=== PATIENT | female | born 1985 | race Caucasian/White ===

== ENCOUNTER → 2017-08-16 10:29 | Outpatient (CLI) | payer BC, SELFPAY ==
[2017-08-16 12:43] LABS: Hematocrit 28.5 % (37-47); Mean Corp Hgb Conc 31.6 g/gl (32-36); Mean Corpuscular Hgb 27.6 pg (27.0-32.0); Mean Corpuscular Volume 87.4 fL (81-99); Mean Platelet Vol. 10.4 fl (6.2-12.0); Platelet Count 239 K/mm3 (150-450); RBC Distribution Width CV 13.2 % (11.6-14.6); RBC Distribution Width SD 42.4 fl (35.1-43.9); Red Blood Count 3.26 M/mm3 (4.2-5.4); Scan Indicated on CBC? Y/N NO
[2017-08-16 12:46] LABS: Glucose Challenge Gest 1H 50g 66 mg/dL (70-140)
== END ==
PROVIDERS: Visit Provider Obstetrics & Gynecology
DX: Z34.83 Encounter for supervision of other normal pregnancy, third trimester (principal)
CPT/HCPCS: 36415; 82950; 85027; 86850

== ENCOUNTER → 2017-10-11 14:13 | Outpatient (CLI) | payer BC, SELFPAY ==
[2017-10-11 16:53] LABS: Group B Strep DNA By PCR Negative (Negative); Internal Control PASS; Probe Check PASS; Specimen Processing Control PASS
== END ==
PROVIDERS: Visit Provider Obstetrics & Gynecology
DX: Z36.85 Encounter for antenatal screening for Streptococcus B (principal)
CPT/HCPCS: 87081; 87653

== ENCOUNTER 2017-10-26 14:10 | Outpatient (CLI) | payer BC, SELFPAY ==
--- NOTE | 2017-10-27 13:35 | OB.TRI.NOTE ---
History of Present Illness Date of Service: 10/26/17 Reason For Visit: ROL Date of Service: 10/26/17 Final CRAIG Source: US <20 weeks Gestational age: 38 + wk EGA Home Medications Medication Instructions Recorded Vits [Prenatabs FA ] 1 tablet PO DAILY 12/13/15 Acetaminophen [Tylenol Extra 500 mg PO Q6H 10/26/17 Strength] Ferrous Gluconate 325 mg PO BIDCM 10/26/17 Allergies No Known Allergies Allergy (Verified 10/26/17 20:22) - Pertinent Past Medical History Pertinent Past Medical History: 32 yo female at 38 + wk presented for labor check with h/o UCs up to q 7 mins all day yesterday. Evaluated no further change of cervix. Physical Exam Presentation: Cephalic NST - FHR Rate Baby A Variability:: Moderate Accelerations:: 15 x 15 Decelerations:: None NST Reactive:: Yes, Appropriate for gestational age FHR Category:: Category I Uterine Activity:: irregular UCs without cervical change Impression/Plan 38 + wk EGA Prodromal labor without cervical change Home Return if inc s/sx of labor.
== END 2017-10-26 16:15 | disposition home or self-care (01) ==
LOC: WPOUT 14:50 → WP 14:52
PROVIDERS: Family Provider Family Medicine; PCP Family Medicine; Visit Provider Obstetrics & Gynecology
DX: O47.1 False labor at or after 37 completed weeks of gestation (principal); Z3A.38 38 weeks gestation of pregnancy
CPT/HCPCS: 59025; 59050; 99218; G0378

== ENCOUNTER 2017-10-26 19:45 | Inpatient (IN) | payer BC, SELFPAY ==
[2017-10-26] MEDS: Lactated Ringers 1,000 ML 50 ML IV ×2 (20:07→21:07)
[2017-10-26 20:24] VITALS: BMI 26.6
[2017-10-26 20:30] LABS: Hematocrit 31.5 % (37-47); Hemoglobin 10.2 g/dl (12.0-15.0); Mean Corp Hgb Conc 32.4 g/gl (32-36); Mean Corpuscular Hgb 26.9 pg (27.0-32.0); Mean Corpuscular Volume 83.1 fL (81-99); Mean Platelet Vol. 10.3 fl (6.2-12.0); Platelet Count 226 K/mm3 (150-450); RBC Distribution Width CV 14.8 % (11.6-14.6); RBC Distribution Width SD 45.4 fl (35.1-43.9); Red Blood Count 3.79 M/mm3 (4.2-5.4); White Blood Count 12.5 K/mm3 (4.4-11.0)
[2017-10-26 20:31] LABS: Scan Indicated on CBC? Y/N NO
[2017-10-26] MEDS: fentaNYL-bupivacaine (epidural) 100 ML BAG EPIDURAL (21:05)
--- NOTE | 2017-10-26 21:33 | PCM.PN.BLA ---
Progress Note LABOR PROGRESS NOTE Comfortable w/ epidural AVSS EFM: category I tracing UCs q 4 mins (approx) CX: AROM clear fluid. 6-7 (no change from admission) A/P; 38 4/7 wk labor. Comfortable w/ epidural. Position changes, consider pitocin prn if no change of cervix after AROM.
[2017-10-26] MEDS: Oxytocin 30 units/NS 500 ml 30 UNITS/500 ML IV.SOLN 334 UNITS IV (21:54)
--- NOTE | 2017-10-26 21:56 | PCM.OB.VAG ---
Vaginal Delivery Maternal Presentation: Active Labor 38 3/7 wk labor Medical Reason for Induction: Gestational Hypertension Amniotic Membrane Rupture Type: Artificial Amniotic Fluid Description: Clear Final CRAIG: 11/06/17 Gestational age: 38 Weeks and 3 Days Date of Procedure: 10/26/17 Pre-Operative Diagnosis: 38 3/7 wk labor Post-Operative Diagnosis: same Surgery/ Procedure Performed: Spontaneous Vaginal Delivery Anesthesiologist: Dinora Jin Type of Anesthesia: Epidural Description of Procedure: of a nye viable female over intact perineum. Head delivered VANESA. No nuchal cord. Shoulders delivered easily. OP and nares bulb suctioned at delivery. to maternal abd with spont cry. Routine cord blood for typing collected. Apgars 8/9 Placenta delivered by spont expulsion, expression. Intact with 3-v cord trailing membranes No laceration, no repair. EBL 250 cc Presentation: Vertex Placental Delivery Description: Spontaneous, Expressed Placenta Disposition: [facility] Cord Vessel Description: 3 Vessels Cord Entanglement: None Estimated Blood Loss: 250 Infant A gender: Female (1 minute): 8 (5 minute): 9 Episiotomy Description: None Laceration: None Medications given after delivery: IV Pitocin Complications: None
--- NOTE | 2017-10-26 22:02 | PCM.DCVAG ---
Discharge Diet: No Restrictions May resume sexual activity in: 4-6 weeks Additional Activity Instructions:: Nothing in the vagina for 4-6 weeks. You may return to work/school in 6 weeks. Additional Instructions: If you experience any of the following, contact your healthcare provider. Bleeding that soaks a pad every hour for 2 hours Fever 100.4 or higher Unrelieved abdominal pain Problems urinating (including inability to urinate or burning while urinating). Visual changes Severe headache Flu-like symptoms Pain or redness in one of both of your breasts Pain, warmth, tenderness or swelling in your legs, especially the calf area Frequent nausea and vomiting Symptoms of depression or anxiety If you experience any of the following, call 911 or go to the nearest Emergency Room. Chest pain Problems breathing Seizure activity Partial or complete paralysis of a body part, slurred speech, weakness or drooping of the face, or a sudden inability to walk or hold your balance Allergies/Adverse Reactions: Allergies No Known Allergies Allergy (Verified 10/26/17 20:22) Medications to take at Discharge Vits [Prenatabs FA ] 1 tablet PO DAILY 12/13/15 Acetaminophen [Tylenol Extra Strength] 500 mg PO Q6H 10/26/17 Ferrous Gluconate 325 mg PO BIDCM 10/26/17 Please Follow Up With: Mily Hernandez MD - [phone] When: Call to make an appointment with your doctor in 6 weeks. Primary Care Physician: Juancarlos Villela MD [Primary Care Provider] -
--- NOTE | 2017-10-26 22:03 | DCINST_ITS ---
Discharge Diet: No Restrictions May resume sexual activity in: 4-6 weeks Additional Activity Instructions:: Nothing in the vagina for 4-6 weeks. You may return to work/school in 6 weeks. Additional Instructions: If you experience any of the following, contact your healthcare provider. * Bleeding that soaks a pad every hour for 2 hours * Fever 100.4 or higher * Unrelieved abdominal pain * Problems urinating (including inability to urinate or burning while urinating) . * Visual changes * Severe headache * Flu-like symptoms * Pain or redness in one of both of your breasts * Pain, warmth, tenderness or swelling in your legs, especially the calf area * Frequent nausea and vomiting * Symptoms of depression or anxiety If you experience any of the following, call 911 or go to the nearest Emergency Room. * Chest pain * Problems breathing * Seizure activity * Partial or complete paralysis of a body part, slurred speech, weakness or drooping of the face, or a sudden inability to walk or hold your balance Allergies/Adverse Reactions: Allergies No Known Allergies Allergy (Verified 10/26/17 20:22) Medications to take at Discharge Vits [Prenatabs FA ] 1 tablet PO DAILY 12/13/15 Acetaminophen [Tylenol Extra Strength] 500 mg PO Q6H 10/26/17 Ferrous Gluconate 325 mg PO BIDCM 10/26/17 Please Follow Up With: Mily Hernandez MD - [phone] When: Call to make an appointment with your doctor in 6 weeks. Primary Care Physician: Juancarlos Villela MD [Primary Care Provider] -
[2017-10-26] MEDS: Oxytocin 30 units/NS 500 ml 30 UNITS/500 ML IV.SOLN 167 UNITS IV (22:24)
[2017-10-27 00:10] VITALS: BP 110/68; PULSE 73; RESP 18; TEMP 36.7
[2017-10-27 04:20] VITALS: BP 94/62; PULSE 72; RESP 18; TEMP 36.9; O2SAT 97
--- NOTE | 2017-10-27 07:13 | PCM.PN.OB ---
Subjective: PPD#1 Rh NEG and Kleihauer Betke test ordered (pending) additional RhoGAM may be needed Doing well. Hoping to go home today but additional testing needed as above. Minimal pain. Family in to see baby. Nursing well. - Physical Exam General: Alert, Oriented x3, Cooperative, No apparent distress HEENT: Atraumatic Neck: Supple Abdomen: Soft - Fundus firm NT inferior to umbilicus Neurological: Cranial nerves II-XII grossly intact Psych/Mental Status: Normal Affect Vital Signs Temp Pulse Resp BP Pulse Ox 98.4 F 72 18 94/62 97 10/27/17 04:20 10/27/17 04:20 10/27/17 04:20 10/27/17 04:20 10/27/17 04:20 Oxygen Delivery Method Room Air Weight: 75 kg Body Mass Index (BMI) 26.6 Intake and Output for Last 24 Hours 10/25/17 10/26/17 10/27/17 23:59 23:59 23:59 Intake Total 1149 / 1149 334 / 334 Output Total 1600 / 1600 Balance 1149 / 1149 -1266 / -1266 Laboratory Tests Past 24 Hrs 10/26/17 10/26/17 10/27/17 20:07 20:07 04:50 WBC 12.5 H RBC 3.79 L Hgb 10.2 L Hct 31.5 L MCV 83.1 MCH 26.9 L MCHC 32.4 RDW 14.8 H RDW Differential 45.4 H Plt Count 226 MPV 10.3 Kleihauer-Betke F Hgb Blood Type A NEGATIVE Antibody Screen NEGATIVE Screen POSITIVE H Baby's Blood Type A NEGATIVE Baby's ERIK NEGATIVE 10/27/17 Unknown WBC RBC Hgb Hct MCV MCH MCHC RDW RDW Differential Plt Count MPV Kleihauer-Betke F Hgb Pending Blood Type Antibody Screen Screen Baby's Blood Type Baby's ERIK Medical Necessity - Tobacco Use Smoking Status: Never smoker Assessment/Plan PPD#1 Rh NEG and additional testing in progress for cells on RhoGAM workup Continue routine care. Potential dischg if workup completed.
[2017-10-27 08:00] VITALS: BP 94/65; PULSE 80; RESP 16; TEMP 36.7; O2SAT 99
[2017-10-27] MEDS: Prenatal Vits Tablet 1 TABLET PO (09:38)
[2017-10-27 12:00] VITALS: BP 105/68; PULSE 78; RESP 17; TEMP 36.7; O2SAT 98
[2017-10-27 14:44] LABS: Kleihauer-Betke Negative
[2017-10-27 15:00] VITALS: BP 109/70; PULSE 76; RESP 17; TEMP 36.6; O2SAT 98
--- NOTE | 2017-10-27 19:12 | PCM.PROGNOTE ---
Subjective: Doing well requests dischaarge home. Cleared medically. Objective: afeb VSS - Physical Exam General: Alert, Oriented x3, Cooperative, No apparent distress Lungs: Clear to auscultation, Normal air movement Cardiovascular: Regular rate, Regular Rhythm Abdomen: Non Tender Psych/Mental Status: Normal Affect Comment: lochia light Vital Signs Temp Pulse Resp BP Pulse Ox 97.8 F 76 17 109/70 98 10/27/17 15:00 10/27/17 15:00 10/27/17 15:00 10/27/17 15:00 10/27/17 15:00 Oxygen Delivery Method Room Air Weight: 165 lb 5.547 oz Body Mass Index (BMI) 26.6 Intake and Output for Last 24 Hours 10/25/17 10/26/17 10/27/17 23:59 23:59 23:59 Intake Total 1149 / 1149 334 / 334 Output Total 1600 / 1600 Balance 1149 / 1149 -1266 / -1266 Laboratory Tests Past 24 Hrs 10/26/17 10/26/17 10/27/17 20:07 20:07 04:50 WBC 12.5 H RBC 3.79 L Hgb 10.2 L Hct 31.5 L MCV 83.1 MCH 26.9 L MCHC 32.4 RDW 14.8 H RDW Differential 45.4 H Plt Count 226 MPV 10.3 Kleihauer-Betke F Hgb Blood Type A NEGATIVE Antibody Screen NEGATIVE Screen POSITIVE H Baby's Blood Type A POSITIVE Baby's ERIK NEGATIVE 10/27/17 Unknown WBC RBC Hgb Hct MCV MCH MCHC RDW RDW Differential Plt Count MPV Kleihauer-Betke F Hgb Negative Blood Type Antibody Screen Screen Baby's Blood Type Baby's ERIK Medical Necessity - Tobacco Use Smoking Status: Never smoker Assessment/Plan Cleared for early discharge. Home going instructions given.
--- NOTE | 2017-10-27 19:14 | PCM.DC.SUM ---
Discharge Date and Diagnosis Date of Admission: 10/26/17 Date of Discharge: 10/27/17 - Primary Discharge Diagnosis s/p Hospital Course and Treatment Operations: None Procedures: - - Summary of Care Provided: The patient is a 32 year old F [presented in active labor, progressed to FD then pushed to deliver a live without complication. Discharged home on PP day#1.] Discharge Diet: No Restrictions May resume sexual activity in: 4-6 weeks Additional Activity Instructions:: Nothing in the vagina for 4-6 weeks. You may return to work/school in 6 weeks. Home Medications: Medications to take at Discharge Vits [Prenatabs FA ] 1 tablet PO DAILY 12/13/15 Acetaminophen [Tylenol Extra Strength] 500 mg PO Q6H 10/26/17 Ferrous Gluconate 325 mg PO BIDCM 10/26/17 Other Amb Orders: Electric breast pump Time Frame: 1 Year, Location: None Selected Primary Care Physician: Juancarlos Villela MD [NON-STAFF] - Please Follow Up With: Mily Hernandez MD - [phone] When: 6 weeks Disposition: Home Minutes spent on discharge:: 15 Patient Condition:: Good Medical Necessity - Tobacco Use Smoking Status: Never smoker Meaningful Use Info Meaningful Use Diagnoses (Choose all that apply): None applicable
[2017-10-27 20:10] VITALS: BP 107/66; PULSE 74; RESP 16; TEMP 36.8; O2SAT 98
== END 2017-10-27 23:00 | disposition home or self-care (01) | DRG 775 ==
PROVIDERS: Admitting Provider Obstetrics & Gynecology; Visit Provider Obstetrics & Gynecology
DX: O13.3 Gestational [pregnancy-induced] hypertension without significant proteinuria, third trimester (principal); O99.013 Anemia complicating pregnancy, third trimester; D64.9 Anemia, unspecified; Z3A.38 38 weeks gestation of pregnancy
CPT/HCPCS: 59025; 59050; 85027; 85460; 85461; 86850; 86900; 90384; 99218; J7120; G0378; J2790

== ENCOUNTER 2017-12-20 21:40 | Emergency (ER) | payer BC, SELFPAY ==
--- NOTE | 2017-12-20 21:40 | DT_ITS ---
This patient was seen during an EMR downtime December 13, 2017 - December 20, 2017. This patient may have a combination of paper and electronic documentation or all paper documentation. All documentation is viewable within the e-chart portion of [facility] for each patient visit.
[2017-12-20 21:41] VITALS: BP 120/68; PULSE 92; RESP 16; TEMP 35.6; O2SAT 96; BMI 22.9
[2017-12-20] MEDS: 0.9% Normal Saline 1,000 ML 150 ML IV (22:26)
[2017-12-20] MEDS: Ondansetron 4 MG/2 ML Vial IV (22:26)
[2017-12-20] MEDS: Morphine 4 MG/ML Syringe IV (22:26)
[2017-12-20 22:29] LABS: Absolute Lymphocyte Count 2.52 X10^3/ul (0.83-4.51); Absolute Neutrophil Count 4.7 X10^3/uL (2.0-7.7); Basophil# 0.02 X10^3/uL; Basophil% 0.3 % (0-1); Eosinophil# 0.11 X10^3/uL; Eosinophils% 1.4 % (0-5); Hematocrit 39.2 % (37-47); Hemoglobin 12.7 g/dl (12.0-15.0); Lymphocyte # 2.52 X10^3/ul (4.0); Lymphocyte % 33.1 % (19-41); Mean Corp Hgb Conc 32.4 g/gl (32-36); Mean Corpuscular Hgb 26.8 pg (27.0-32.0); Mean Corpuscular Volume 82.7 fL (81-99); Monocyte# 0.29 X10^3/uL; Monocyte% 3.8 % (0-10); Neutrophil # 4.66 X10^3/uL (2.7-7.7); Neutrophil % 61.3 % (47-70); Platelet Count 180 K/mm3 (150-450); RBC Distribution Width SD 42.4 fl (35.1-43.9); Red Blood Count 4.74 M/mm3 (4.2-5.4); White Blood Count 7.6 K/mm3 (4.4-11.0)
[2017-12-20 22:40] LABS: POSITIVE COUNT NO; POSITIVE DIFFERENTIAL NO; POSITIVE MORPHOLOGY NO
[2017-12-20 22:57] LABS: AST(SGOT) 18 U/L (15-37); Alanine Aminotransfer ALT/SGPT 34 U/L (13-56); Albumin, Serum 3.8 g/dL (3.2-5.0); Alkaline Phosphatase 46 U/L (45-117); Anion Gap 9 (5-15); BUN 20 mg/dL (7-18); BUN/Creat Ratio 22.8 RATIO (10-20); Bilirubin, Direct 0.14 mg/dL (0.00-0.30); Calcium,Total 8.8 mg/dL (8.5-10.1); Chloride 107 mmol/L (98-107); Creatinine, Serum 0.88 mg/dL (0.55-1.02); EST Glomerular Filtration Rate 79 mL/min (>60); Est Glom Filt Rate - Afr Amer 95 mL/min (>60); Globulin 3.5 g/dL (2.2-4.2); Glucose 126 mg/dL (74-106); Lipase 114 U/L (73-393); Potassium 3.3 mmol/L (3.5-5.1); Protein, Total 7.3 g/dL (6.4-8.2); Sodium Level 141 mmol/L (136-145)
[2017-12-20 23:02] LABS: Pregnancy, Serum, hCG Quali. NEGATIVE Negative (0-9 Nonpreg)
--- NOTE | 2017-12-20 23:09 | CT_ITS ---
STUDY: CT ABDOMEN AND PELVIS WITHOUT CONTRAST REASON FOR EXAM: Female, 32 years old. Nausea, vomiting, right upper quadrant pain RADIATION DOSAGE (If Supplied By Facility): CTDIvol = ( 6.64 ) mGy, DLP = ( 315.41 ) mGycm TECHNIQUE: Transaxial images were obtained from the dome of the diaphragm to the symphysis pubis without oral contrast, and without intravenous contrast. Sagittal and coronal images were reconstructed. Individualized dose optimization techniques were used for this CT. COMPARISON: None. FINDINGS: The visualized lung bases are unremarkable. The visualized portions of the heart are within normal limits. Hepatomegaly, with liver length of 19.1 cm. Normal gallbladder and extrahepatic biliary system. Normal spleen. Normal pancreas. Normal bilateral adrenal glands. A 3 mm stone is present in the distal right ureter at the level of the ureterovesical junction with changes of moderate acute obstructive uropathy. Bilateral nonobstructing renal calculi, measuring up to 2 mm on the right and up to 3 mm on the left. Normal visualized stomach. Normal small intestine. Normal colon. The appendix is visualized and appears normal. Normal abdominal aorta. Normal inferior vena cava. Normal retroperitoneum. Normal urinary bladder. Normal abdominal wall. Normal osseous structures. CT/Abdomen/Pelvis without Cont IMPRESSION: A 3 mm stone is present in the distal right ureter at the level of the ureterovesical junction with changes of moderate acute obstructive uropathy. Electronically Signed: Mc Romeo MD at 0:20 EDT Tel , Service support ,
[2017-12-20] MEDS: HYDROmorphone 0.5 MG/0.5 ML SYRINGE IV (23:22)
[2017-12-20] MEDS: proMETHazine 25 MG/ML Syringe 6.25 MG IV (23:23)
[2017-12-20] MEDS: Ketorolac 30 MG/ML Syringe IV (23:24)
--- NOTE | 2017-12-20 23:34 | ED.DCSUM_ITS ---
- ER Visit Summary Date of Service: 12/20/17 Chief Complaint: Nausea, vomiting, right upper quadrant pain History of Present Illness: The patient is a 32 F who was at her daughter's ball game [id number]. After returning home she developed rather sudden onset of right upper quadrant pain radiating to the right flank area. Patient has had nausea and vomiting. She denies history of kidney stone or problems with her gallbladder. She is currently 2 months . Physical Examination: Vital signs unremarkable. Patient's lying on her right side. She is in no acute distress but does appear quite uncomfortable. Heart is regular rate and rhythm. Lung sounds are clear. Abdomen is soft with tenderness in the right upper quadrant as well as right CVA tenderness. There is no guarding or rebound over the anterior abdomen. Test Results: CBC and chemistry studies are significant only for potassium of 3.3. LFTs are normal. test negative. CT scan of the flank reveals a 3 mm stone in the distal portion of the right ureter to the level of the UVJ. There is evidence of moderate acute obstructive uropathy. Emergency Department Course and Treatment: Patient was initially given morphine , Zofran, and IV fluids. Due to continued pain and nausea with dry heaves she was given Dilaudid, Phenergan, and Toradol. On repeat evaluation patient is resting much more comfortably. She will be given pain and nausea medication for home. She is encouraged to return if her symptoms worsen. She will be given urology information for follow-up. Treatment Plan: [] Disposition: Discharge Impression: Right-sided ureterolithiasis This note was generated with [employer] dictation software. It may contain incorrect words, spelling, and punctuation that were not noted in review of the chart prior to signing ED Disposition - Plan for ED Patient: Chief Complaint: Abd Pain Referrals: Care Physician,No Primary [Primary Care Provider] -
[2017-12-21 00:24] VITALS: BP 125/73; PULSE 75; RESP 16; O2SAT 100
[2017-12-21 00:26] LABS: Bacteria 0 SEEN /hpf (None Seen); Mucous, Urine 0 SEEN /hpf (<or=2+)
[2017-12-21 00:29] LABS: Color, Urine Yellow (Yellow); Glucose, Dipstick Normal (Normal); Ketone-Dipstick Negative (Negative); Leukocyte Esterase-Dipstick 25 /ul (Negative); Nitrite-Dipstick Negative (Negative); Occult Blood-Urine 25 /ul (Negative); Protein-Dipstick 15 mg/dl (Negative); Specific Gravity, Urine 1.015 (1.002-1.030); Urine Bilirubin Dipstick Negative (Negative); Urine Clarity Sl. Cloudy (Clear); Urine Urobilinogen Normal (Normal); Urine pH 6.5 (5.0 - 8.0)
[2017-12-21 00:39] LABS: Amorphous Sediment 1+ URATE; Red Blood Cells-Urine 0-5 SEEN /hpf (0-5); Squamous Epithelial Cells - UA 10-25 SEEN /hpf (5-10); White Blood Cells 0-5 SEEN /hpf (0-5)
--- NOTE | 2017-12-21 00:48 | ED.DEP ---
ED Disposition - Plan for ED Patient: Disposition: Home or Assisted Living Chief Complaint: Abd Pain Instructions: ED Stone Renal W Colic Prescriptions: Ondansetron [Zofran Odt] 4 mg PO Q6H PRN PRN #20 tablet PRN Reason: Nausea Hydrocodone/Acetaminophen [[place] 5-325 Tablet] 1 - 2 each PO 4X/DAY PRN PRN 5 Days #20 tablet PRN Reason: Pain Ketorolac [Toradol] 10 mg PO Q6H PRN #20 tablet PRN Reason: Pain Referrals: Ton Maddox MD [STAFF PHYSICIAN] - 3-5 Days if not improving
[2017-12-21] MEDS: HYDROcodone Bitartrate/Apap 5/325 Tablet PO (01:09)
[2017-12-21] MEDS: Ondansetron ODT 4 MG Tablet PO (01:10)
[2017-12-21 01:17] VITALS: BP 132/89; PULSE 82; RESP 14; O2SAT 99
== END 2017-12-21 01:17 | disposition home or self-care (01) ==
PROVIDERS: Emergency Provider Emergency Medicine
DX: N20.1 Calculus of ureter (principal)
CPT/HCPCS: 74176; 80048; 80076; 81001; 83690; 84703; 85025; 96361; 96374; 96375; 99284; J7030; A4216; J2405

== ENCOUNTER 2017-12-22 11:11 | Day surgery (SDC) | payer BC, SELFPAY ==
--- NOTE | 2017-12-22 | FALS_PTH ---
PATIENT: SARAHI YOUNG LOC: [facility] U#:[id number] AGE/SX: 32/F ROOM: RE12/22/[address]: Dr. Mily Hernandez MD : [id number] BED: DIS: 12/22/2017 SPEC #: [id number] RECD: 12/22/17 14:17 STATUS: VIET DAVIN #: [id number] JUAN: 12/22/17 00:[address]: Mily Hernandez DEPT: SURGICAL PATHOLOGY RECD BY: Mickey Neil ENTERED: 12/22/17 14:17 SP TYPE: FALL TUBES OTHR DR: No Primary Care Phys Tissues: Fallopian tube Procedures: Surgery Specimen Level II Comments: @ Specimen number changed from [id number] to [id number] @ on 12/22/17 at 1546 by RGOOD. HEADER OPERATION: Laparoscopic salpingectomy PRE-OP DIAGNOSIS: Desires sterilization TISSUE SUBMITTED: Bilateral fallopian tubes MICROSCOPIC DIAGNOSIS Bilateral fallopian tubes, salpingectomy: Bilateral fallopian tubes including fimbrial ends, no pathologic diagnosis. PHIL:stu 12/23/17 MICROSCOPIC DESCRIPTION Slides are reviewed. GROSS DESCRIPTION Received in fixative is one container labeled with the patient's name and designated bilateral fallopian tubes. The specimen consists of bilateral fallopian tubes including fimbrial ends. The fallopian tubes are not identified as right or left. One of the fallopian tubes measure 4 cm in length and 0.7 cm in diameter. The second fallopian tube measures 3 cm in length and 0.7 cm in diameter. A small portion of fimbrial end is noted in this segment. Also present is a detached segment of fimbrial end measuring 1 x 1 x 0.2 cm. Sections reveal unremarkable cut surfaces. Director Presales sections are submitted in two cassettes with each cassette containing one fallopian tube. / PHIL:stu 12/22/17 TC:4 CPT: 16742 x2
[2017-12-22 11:31] VITALS: BP 111/71; PULSE 64; RESP 18; TEMP 36.6; O2SAT 100; BMI 22.8
[2017-12-22 11:35] LABS: Internal QC Validated? YES +Cl - CLEAR BKGD; Pregnancy, Urine Negative Negative
--- NOTE | 2017-12-22 12:11 | PCM.DC.TUB ---
Discharge Diet: No Restrictions Discharge Activity: May not drive while taking narcotic pain medications., May Shower, May Take a Tub Bath Return to work on:: 12/27/17 Additional Activity Instructions:: Ambulate often the next week after surgery. Nothing in the vagina for 5 days. Call your doctor if you observe: Fever of 101 or Higher, Inability to have a bowel movement, Using more than one pad per hour, Uncontrolled pain Change Dressing in (Days):: 4 Remove Dressing in (days):: 4 Cleanse incision/area with: Soap & Water, Keep Dressing Clean & Dry Additional Instructions: You may take three Ibuprofen or two Aleve every eight hours as needed for milder pain. Add Oxycodone for more severe pain as needed. Resume activity as tolerated. Allergies/Adverse Reactions: Allergies No Known Allergies Allergy (Verified 12/20/17 22:12) Medications to take at Discharge Oxycodone [Oxyir] 5 mg PO Q6H PRN PRN 3 Days #10 tablet 12/22/17 The following prescriptions were given: Oxycodone [Oxyir] 5 mg PO Q6H PRN PRN 3 Days #10 tablet PRN Reason: Mod-Severe Pain (4-04/20) Please Follow Up With: Mily Hernandez MD - [phone] When: Please call with an update in 7 days. Proposed Discharge Date: 12/22/17
--- NOTE | 2017-12-22 12:17 | DCINST_ITS ---
Discharge Diet: No Restrictions Discharge Activity: May not drive while taking narcotic pain medications., May Shower, May Take a Tub Bath Return to work on:: 12/27/17 Additional Activity Instructions:: Ambulate often the next week after surgery. Nothing in the vagina for 5 days. Call your doctor if you observe: Fever of 101 or Higher, Inability to have a bowel movement, Using more than one pad per hour, Uncontrolled pain Change Dressing in (Days):: 4 Remove Dressing in (days):: 4 Cleanse incision/area with: Soap & Water, Keep Dressing Clean & Dry Additional Instructions: You may take three Ibuprofen or two Aleve every eight hours as needed for milder pain. Add Oxycodone for more severe pain as needed. Resume activity as tolerated. Allergies/Adverse Reactions: Allergies No Known Allergies Allergy (Verified 12/20/17 22:12) Medications to take at Discharge Oxycodone [Oxyir] 5 mg PO Q6H PRN PRN 3 Days #10 tablet 12/22/17 The following prescriptions were given: Oxycodone [Oxyir] 5 mg PO Q6H PRN PRN 3 Days #10 tablet PRN Reason: Mod-Severe Pain (4-04/20) Please Follow Up With: Mily Hernandez MD - [phone] When: Please call with an update in 7 days. Proposed Discharge Date: 12/22/17
--- NOTE | 2017-12-22 12:27 | PCM.WORK.EX ---
Work/School Excuse Work/School Excuse for:: Patient Please excuse this person from:: Work From: 12/22/17 through: 12/27/17 - Return on 12/27/17 No restrictions
--- NOTE | 2017-12-22 13:13 | PCM.IMDPSTOP ---
Immediate Post-Op Note Date of Procedure: 12/22/17 Primary Surgeon/Physician: Mily Hernandez insurance associate: Torrie Espinosa Pre-Operative Diagnosis: sterilization request Post-Operative Diagnosis: Same Surgery/Procedure Performed:: Laparoscopic bilateral salpingectomy Description of Surgical Findings:: normal appearing uterus, bilateral fallopian tubes and ovaries. Gross inspection of bowel , omentum, liver edge WNL. Estimated Blood Loss: minimal Specimen's removed: bilateral fallopian tubes Drains: jhon jones Type of Anesthesia:: General - MUNIRA Zaman. Dr. Castro, Charlotte Posada, SENIOR DENTIST - Admit VTE Documentation VTE Mechan Device Prophylaxis: SCD's VTE Pharm Prophylaxis ordered?: No
--- NOTE | 2017-12-22 13:18 | OP.PN_ITS ---
Immediate Post-Op Note Date of Procedure: 12/22/17 Primary Surgeon/Physician: Mily Hernandez rn transition: Torrie Espinosa Pre-Operative Diagnosis: sterilization request Post-Operative Diagnosis: Same Surgery/Procedure Performed:: Laparoscopic bilateral salpingectomy Description of Surgical Findings:: normal appearing uterus, bilateral fallopian tubes and ovaries. Gross inspection of bowel , omentum, liver edge WNL. Estimated Blood Loss: minimal Specimen's removed: bilateral fallopian tubes Drains: jhon jones Type of Anesthesia:: General - MUNIRA Zaman. Dr. Castro, Charlotte Posada , KNITTER HAND - Admit VTE Documentation VTE Mechan Device Prophylaxis: SCD's VTE Pharm Prophylaxis ordered?: No
--- NOTE | 2017-12-22 13:23 | OP.PCM_ITS ---
Operative Report Date of Procedure: 12/22/17 PROCEDURE: Laparoscopic Bilateral Salpingectomy PREOPERATIVE DIAGNOSIS: Sterilization request POSTOPERATIVE diagnosis: Sterilization request Surgeon: Mily Hernandez MD Anesthesia: general anesthesia. MUNIRA Zaman. Dr. Castro, and Charlotte Posada CRNA Interactive Video Technician: MADHURI Sanchez EBL: minimal Complications: None Drains: Red Dalton catheter used to drain the bladder prior to initiation of the case Fluids: LR replacement Findings; Normal appearing uterus. Fallopian tubes and ovaries are WNL. Gross inspection of bowel, omentum. liver edge also WNL. photos were taken of the uterus and ovaries after Bilateral salpingectomy, and of the RUQ / liver edge Narrative account: After the risks, benefits, alternatives of procedure had been reviewed with the patient, informed consent was obtained. The patient was taken back to the Operating room with an IV running. she was positioned on the operating table in dorsal supine position, where she was given general anesthesia. Once asleep she was repositioned to the dorsal lithotomy position and prepped and draped in the usual sterile fashion. A red Dalton catheter was used to drain the bladder prior to initiating the case. A sponge stick was placed into the vaginal to allow manipulation of the uterus and cervix during the case. Attention was then turned to the anterior abdominal wall where 1 % lidocaine with epinephrine was instilled at the suprapubic and infraumbilical skin and at a point midway between in the midline. Skin incisions were then created in the midline at the suprapubic skin and at the infraumbilical skin and midway between the two. While maintaining upward traction of the anterior abdominal wall a Veress needle was inserted through the umbilical incision into the peritoneal cavity. There was free drop of saline, low opening pressure and free flow of CO2 noted. Once the intraabdominal pressure had reached 8 mm of mercury the Veress needle was removed and a bladeless 5 mm trocar was placed through infraumbilical skin incision into the peritoneal cavity. Correct placement was confirmed using the scope. Under direct visualization then with the patient in Trendelenburg position, a bladeless 5 mm trocar was inserted in through suprapubic skin incision into the peritoneal cavity and a mini- alligator grasper was inserted into the peritoneal cavity through a stab incision at a point midway between the infraumbilical and suprapubic trocars. The uterus as anteverted and both ovaries and fallopian tubes were WNL. The R fallopian tube was grasped and retracted medially and using a LigaSure device the fallopian tube was excised from the ovary and mesosalpinx. Excellent hemostasis was noted at the excision site. The R fallopian tube was brought through the suprapubic trocar and set aside for later pathology review. In a similar manner the L fallopian tube was grasped and retracted medially and the fallopian tube was excised and removed from the abdominal cavity through the suprapubic trochar. The Fallopian tubes were sent to pathology. Excellent hemostasis was noted by visualization of the pelvis, ovaries, and remaining mesosalpinx. Photos were taken of the uterus and Bilateral remaining ovaries and of the RUQ and liver edge. At this point the the procedure was terminated. The pneumoperitoneum was reduced and the instruments and trocars were removed from he the anterior abdominal wall skin. The skin incisions were closed with 4-0 Monocryl in a subcuticular fashion. Dermabond and OpSites were applied to the skin. The sponge stick was removed from the vagina. The patient was returned to dorsal supine position. She was awakened from general anesthesia. She was transferred to the recovery room bed in stable condition after tolerating the procedure well. Sponge, lap, needle and instrument counts were correct x two. Medications given preop and intraoperatively included: 10 cc of 1 % Lidocaine with epinephrine --used as a subcutaneous block and Toradol 30 mg IV x one. For a complete listing of medications given preop and intraop , please see the anesthesia record.
[2017-12-22 13:28] VITALS: BP 111/71; BP 133/78; PULSE 73; RESP 16; TEMP 36.5; O2SAT 97
[2017-12-22 13:35] VITALS: BP 111/71; BP 122/72; PULSE 77; RESP 16; O2SAT 98
[2017-12-22 13:43] VITALS: BP 111/71; BP 119/77; PULSE 62; RESP 17; O2SAT 99
[2017-12-22 13:55] VITALS: BP 111/71; BP 112/81; PULSE 60; RESP 16; TEMP 36.6; O2SAT 100
[2017-12-22 14:54] VITALS: BP 111/71; BP 112/78; PULSE 78; RESP 18; TEMP 36.6; O2SAT 99
== END 2017-12-22 14:56 | disposition home or self-care (01) ==
LOC: SDC 11:11 → AC 11:12
PROVIDERS: Visit Provider Obstetrics & Gynecology
PROC: (CPT 58661; principal; 2017-12-22 12:15)
DX: Z30.2 Encounter for sterilization (principal)
CPT/HCPCS: 00840; 58661; 81025; 88302; J7120; J0330; J2405

== ENCOUNTER 2021-08-19 09:09 | Outpatient (CLI) | payer BC, SELFPAY ==
--- NOTE | 2021-08-19 09:13 | BI_ITS ---
MAMMOGRAPHY - BILATERAL SCREENING REASON FOR EXAM: Female, 36 years old. Routine annual screening examination. PERTINENT HISTORY: Grandmother with breast cancer. TECHNIQUE: Digital bilateral breast lidya (3D mammographic acquisition) in the CC and MLO projections. 2-D mediolateral oblique (MLO) and craniocaudad (CC) views of both breasts were obtained. CAD: Full Field Digital Mammography with Computer Added Detection was performed. COMPARISON: None. Baseline examination. FINDINGS: Breast Composition: The breasts are extremely dense, which lowers the sensitivity of mammography. There are no dominant masses or suspicious calcifications. No other significant abnormalities are identified. BI/SCRN MAMM (CAD)W/LIDYA BILAT IMPRESSION: Negative screening mammogram. Yearly followup mammogram recommended. (A) ASSESSMENT CATEGORY: BIRADS Category 1: Negative. A letter regarding these results will be sent to the patient by the facility within 30 days. Approximately 10% of breast cancers are not detected by mammography. A normal mammogram should not delay biopsy of a clinically suspicious abnormality. [id number] Electronically Signed: Jarek Heart MD at 11:00 EST ,
[2021-08-22 14:12] LABS: HPV APTIMA, High Risk Negative (Negative)
== END 2021-08-19 23:59 | disposition home or self-care (01) ==
PROVIDERS: Referring Provider Student in an Organized Health Care Education/Training Program; Visit Provider Student in an Organized Health Care Education/Training Program
DX: Z12.31 Encounter for screening mammogram for malignant neoplasm of breast (principal); Z12.4 Encounter for screening for malignant neoplasm of cervix; Z80.3 Family history of malignant neoplasm of breast
CPT/HCPCS: 77063; 77067; 87624; 88175; G0145